=== PATIENT | female | born 1940 | race Caucasian/White ===

== ENCOUNTER 2017-03-31 12:49 | Observation (INO) | payer MEDICARE ==
[~2017-03-31] VITALS: Ht 160 cm; Wt 90.7 kg
[2017-03-31 14:07] LABS: RED BLOOD COUNT 4.12 M/UL (4.00-5.10); WHITE BLOOD COUNT 7.7 K/UL (4.5-11.0)
[2017-03-31 14:28] LABS: BUN/CREATININE RATIO 25 (0-10)
[2017-03-31] MEDS ORDERED: ZYLOPRIM 100 M100 MG PO (23:34)
[2017-03-31] MEDS ORDERED: COREG 12.5MG12.5 MG PO (23:35)
[2017-03-31] MEDS ORDERED: LIPITOR TAB 2020 MG PO (23:35)
[2017-03-31] MEDS ORDERED: ADVAIR 250-501 EACH INH (23:36)
[2017-03-31] MEDS ORDERED: ALPRAZOLAM0.5 MG PO (23:37)
[2017-03-31] MEDS ORDERED: BENADRYL25 MG PO (23:37)
[2017-03-31] MEDS ORDERED: AZOR 5-40 MG T1 EACH PO (23:37)
[2017-03-31] MEDS ORDERED: FLEXERIL 10 MG10 MG PO (23:39)
[2017-03-31] MEDS ORDERED: CYMBALTA20 MG PO (23:40)
[2017-03-31] MEDS ORDERED: ZETIA10 MG PO (23:41)
[2017-03-31] MEDS ORDERED: CLARITIN 10MG T10 MG PO (23:48)
[2017-03-31] MEDS ORDERED: LEVOTHYROXINE125 MCG PO (23:48)
[2017-03-31] MEDS ORDERED: GLIPIZIDE ER2.5 MG PO (23:48)
[2017-03-31] MEDS ORDERED: RITALIN5 MG PO (23:49)
[2017-03-31] MEDS ORDERED: LOSARTAN POTASS50 MG PO (23:49)
[2017-03-31] MEDS ORDERED: OMEPRAZOLE40 MG PO (23:50)
[2017-03-31] MEDS ORDERED: NORTRIPTYLINE H50 MG PO (23:50)
[2017-03-31] MEDS ORDERED: PREDNISONE 5 MG5 MG PO (23:52)
[2017-03-31] MEDS ORDERED: TRILIPIX135 MG PO (23:52)
[2017-03-31] MEDS ORDERED: PREDNISONE2.5 MG PO (23:52)
[2017-03-31] MEDS ORDERED: COUMADIN7.5 MG PO (23:53)
[2017-03-31] MEDS ORDERED: COUMADIN5 MG PO (23:54)
[2017-03-31] MEDS ORDERED: ULTRAM50 MG PO (23:55)
[2017-04-01 05:22] LABS: RED BLOOD COUNT 4.14 M/UL (4.00-5.10); WHITE BLOOD COUNT 6.6 K/UL (4.5-11.0)
[2017-04-01 05:41] LABS: BUN/CREATININE RATIO 19 (0-10)
[2017-04-02 08:52] LABS: HEMOGLOBIN 10.9 gm/dl (12.3-15.3); RED BLOOD COUNT 4.06 M/UL (4.00-5.10); WHITE BLOOD COUNT 5.5 K/UL (4.5-11.0)
[2017-04-02] MEDS ORDERED: LEVAQUIN500 MG PO (14:47)
[2017-04-02] MEDS ORDERED: NORVASC 5 MG TAB5 MG PO (14:48)
== END 2017-04-02 16:44 | disposition home or self-care (01) ==
LOC: ER1 12:49 → ZEROF 18:00 → MED SURG 4 18:00
PROVIDERS: Family Medicine; ADMIT Hospitalist
DX: S05.12XA Contusion of eyeball and orbital tissues, left eye, initial encounter (principal); S00.83XA Contusion of other part of head, initial encounter; N30.00 Acute cystitis without hematuria; E11.40 Type 2 diabetes mellitus with diabetic neuropathy, unspecified; I10 Essential (primary) hypertension; I48.91 Unspecified atrial fibrillation; E78.5 Hyperlipidemia, unspecified; J44.9 Chronic obstructive pulmonary disease, unspecified; Z85.038 Personal history of other malignant neoplasm of large intestine; Z87.891 Personal history of nicotine dependence; Z88.0 Allergy status to penicillin; Z88.5 Allergy status to narcotic agent; Z88.6 Allergy status to analgesic agent; Z79.01 Long term (current) use of anticoagulants; Z79.2 Long term (current) use of antibiotics; Z79.899 Other long term (current) drug therapy; Z90.49 Acquired absence of other specified parts of digestive tract; Z90.710 Acquired absence of both cervix and uterus; Z98.890 Other specified postprocedural states; W06.XXXA Fall from bed, initial encounter
CPT/HCPCS: 36415; 70450; 70486; 71010; 72070; 72100; 72125; 73030; 73090; 73502; 80048; 80053; 81001; 82550; 82553; 82962; 83874; 84484; 85025; 85027; 85610; 85730; 87040; 87077; 87086; 87186; 93005; 96365; 97535; 99285; G0378; J1956; J7040